=== PATIENT | male | born 1990 | race Caucasian/White ===

== ENCOUNTER 2017-08-24 14:05 | Emergency (ER) | payer OTHER ==
[2017-08-24 14:59] LABS: BILIRUBIN,URINE NEGATIVE (NEG); CLARITY,URINE TURBID; COLOR,URINE YELLOW; GLUCOSE,URINE NEGATIVE (NEG); NITRITE,URINE NEGATIVE (NEG); PROTEIN,URINE 30 mg/dL (NEG-TRACE); UROBILINOGEN,URINE 0.2 mg/dL (0.2 mg/dL)
[2017-08-24] MEDS: IV NORMAL SALINE 1000ML BAG 1,000 ML IV (15:04)
[2017-08-24] MEDS: ONDANSETRON PF 4 MG/2 ML VIAL. IV (15:04)
[2017-08-24 15:06] LABS: BASO % 0 % (0-3); EOS % 0 % (0-3); HEMATOCRIT 42.4 % (39.0-53.0); HEMOGLOBIN 14.3 g/dL (13.0-17.5); LYMPH # 0.3 x10^3/uL (1.0-4.8); LYMPH % 5 % (24-48); MEAN CORPUSCULAR HEMOGLOBIN 30 pg (25-35); MEAN CORPUSCULAR HGB CONC 34 g/dL (31-37); MEAN CORPUSCULAR VOLUME 89 fL (79-100); MONO # 0.9 x10^3/uL (0.0-1.1); MONO % 12 % (0-9); NEUT # 6.2 x10^3uL (1.8-7.7); NEUT % 84 % (31-73); PLATELET COUNT 167 x10^3/uL (140-400); RED BLOOD COUNT 4.75 x10^6/uL (4.30-5.70); RED CELL DISTRIBUTION WIDTH 13.5 % (11.5-14.5); WHITE BLOOD COUNT 7.4 x10^3/uL (4.0-11.0)
[2017-08-24 15:07] LABS: ADD MAN DIFF? YES; BARBITURATES NEG (NEG); BENZODIAZEPINES NEG (NEG); CANNABINOIDS POS (NEG); COCAINE NEG (NEG); METHADONE NEG (NEG); OPIATES NEG (NEG); PHENCYCLIDINE NEG (NEG)
[2017-08-24 15:09] LABS: AMPHETAMINE/METHAMPHETAMINE NEG (NEG); ANION GAP 9 (6-14); BLOOD UREA NITROGEN 9 mg/dL (8-26); BUN/CREATININE RATIO 10 (6-20); CALCIUM 9.3 mg/dL (8.5-10.1); CARBON DIOXIDE 25 mmol/L (21-32); CHLORIDE 105 mmol/L (98-107); CREATININE 0.9 mg/dL (0.7-1.3); ETHANOL, URINE NEG (NEG); GLUCOSE 99 mg/dL (70-99); POTASSIUM 3.4 mmol/L (3.5-5.1); SODIUM 139 mmol/L (136-145)
[2017-08-24 15:15] LABS: ALBUMIN 4.3 g/dL (3.4-5.0); ALBUMIN/GLOBULIN RATIO 1.3 (1.0-1.7); ALK PHOS 54 U/L (46-116); ALT (SGPT) 19 U/L (16-63); AST (SGOT) 16 U/L (15-37); LIPASE 133 U/L (73-393); TOTAL BILIRUBIN 0.4 mg/dL (0.2-1.0); TOTAL PROTEIN 7.5 g/dL (6.4-8.2)
[2017-08-24 15:16] LABS: INFLUENZA A PATIENT NEGATIVE (NEGATIVE)
[2017-08-24 15:17] LABS: INFLUENZA B PATIENT POSITIVE (NEGATIVE); OBC FLU VALID
[2017-08-24] MEDS: POTASSIUM CHLORIDE 20 MEQ TABLET.ER. PO (15:48)
[2017-08-24 16:07] LABS: BACTERIA,URINE FEW /HPF (0-FEW); RBC,URINE 0 /HPF (0-2); WBC,URINE 0 /HPF (0-4)
[2017-08-24] MEDS: IBUPROFEN 800 MG TABLET. PO (16:07)
[2017-08-24] MEDS: ACETAMINOPHEN 325 MG TABLET. PO (16:07)
[2017-08-24 16:08] LABS: AMORPHOUS SEDIMENT,UR PRESENT /HPF
[2017-08-24 17:30] LABS: % LYMPHS 5 % (24-48); % MONOS 10 % (0-10); % SEGS 85 % (35-66); OVALOCYTES OCC; PLT ESTIMATE ADEQUATE (ADEQUATE); SCHISTOCYTES OCC
== END 2017-08-24 17:01 | disposition home or self-care (01) ==
LOC: ER 14:05
DX: J10.1 Influenza due to other identified influenza virus with other respiratory manifestations (principal)
CPT/HCPCS: 36415; 80053; 80307; 81001; 83690; 85007; 85025; 87804; 87804-59; 96361; 96374; 99284-25; J2405; J7030

== ENCOUNTER 2019-05-24 01:12 | Emergency (ER) | payer OTHER ==
[~2019-05-24] VITALS: Ht 167.6 cm; Wt 54.4 kg
[~2019-05-24 01:12] MED LIST: OSEL75CA PO
[2019-05-24 01:35] VITALS: BP 122/75
[2019-05-24] MEDS ORDERED: ONDA4TAB7 PO (01:41)
--- NOTE | 2019-05-24 01:42 | PHYS DOC ---
Past Medical History Past Medical History: No Pertinent History Past Surgical History: No Surgical History Alcohol Use: None Drug Use: None Adult General Chief Complaint Chief Complaint: FLU SYMPTOM [facility] 29-year-old male presents to the emergency department with complaints of fever, body aches, body pain, vomiting, sweats 3 days. She has taken [id number] medications without significant relief. He did not receive the influenza shot this year. Patient states his mother and father both a been diagnosed with influenza as well as pneumonia he was concerned he may have pneumonia. Patient has a cough however nonproductive. Nothing makes his symptoms worse, nothing makes his symptoms better. All other ROS negative unless documented in HPI Review of Systems Review of Systems See Above Allergies Allergies Allergies Coded Allergies Type Severity Reaction Last Updated Verified No Known Drug Allergies 05/16/15 No Physical Exam Physical Exam See Above Constitutional: Well developed, well nourished, no acute distress, non-toxic appearance. [] HENT: Normocephalic, atraumatic, bilateral external ears normal, oropharynx moist, no oral exudates, nose normal. [] Neck: Normal range of motion, no tenderness, supple, no stridor. [] Cardiovascular:Heart rate regular rhythm, no murmur [] Lungs & Thorax: Bilateral breath sounds clear to auscultation [] Abdomen: Bowel sounds normal, soft, no tenderness, no masses, no pulsatile masses. [] Skin: Warm, dry, no erythema, no rash. [] Back: No tenderness, no CVA tenderness. [] Neurologic: Alert and oriented X 3, no focal deficits noted. [] Psychologic: Affect normal, judgement normal, mood normal. [] EKG EKG [] Radiology/Procedures Radiology/Procedures [] Course & Med Decision Making Course & Med Decision Making Pertinent Labs and Imaging studies reviewed. (See chart for details) []29-year-old male presents to the emergency department with complaints of fever, body aches, body pain, vomiting, sweats 3 days. She has taken [id number] medications without significant relief. He did not receive the influenza shot this year. Patient states his mother and father both a been diagnosed with influenza as well as pneumonia he was concerned he may have pneumonia. Patient has a cough however nonproductive. Nothing makes his symptoms worse, nothing makes his symptoms better. Discussed symptoms - influenza Discussed with patient, swab will not change the course of action at this time given > 48 hours of symptoms Tylenol/Motrin as needed Encourage fluids as able Return precautions provided Zofran as needed Steve Disclaimer Dragon Disclaimer This electronic medical record was generated, in whole or in part, using a voice recognition dictation system. Departure Departure Impression: Primary Impression: Influenza Disposition: HOME, SELF-CARE Condition: STABLE Referrals: UNKNOWN PCP NAME (PCP) Patient Instructions: Influenza Virus Vaccine injection (Fluarix) Additional Instructions: Recommend follow up with PCP 3 - 5 days Return to the ER with worsening symptoms, intractable pain, fever, altered mental status Tylenol/Motrin as needed for pain Take zofran as needed Encourage po intake as able, hydration is more important than appetite Scripts Ondansetron Hcl (ZOFRAN) 4 Mg Tablet 1 TAB PO PRN Q6-8HRS for nausea, #12 TAB Prov: ERIN CRAIG MD 05/24/19 ERIN CRAIG MD May 24, 2019 01:41
[2019-05-27] MEDS ORDERED: OSEL75CA PO (15:59)
[2019-05-27] MEDS ORDERED: PANT40TA77 PO (15:59)
== END 2019-05-24 01:44 | disposition home or self-care (01) ==
LOC: ER 01:12
DX: J11.1 Influenza due to unidentified influenza virus with other respiratory manifestations (principal)
CPT/HCPCS: 99283

== ENCOUNTER 2019-05-26 22:39 | Inpatient (IN) | payer OTHER ==
[~2019-05-26] VITALS: Ht 165.1 cm; Wt 58.7 kg
[~2019-05-26 22:39] MED LIST changes: +ONDA4TAB7 PO
[2019-05-26] MEDS ORDERED: ONDANSETRON PF 4 MG/2 ML VIAL. ONE (23:09)
[2019-05-26] MEDS ORDERED: ONDANSETRON PF 4 MG/2 ML VIAL. IV ONE (23:30)
[2019-05-26 23:44] LABS: BASO % 1 % (0-3); EOS % 0 % (0-3); HEMOGLOBIN 14.8 g/dL (13.0-17.5); LYMPH # 1.2 x10^3/uL (1.0-4.8); LYMPH % 22 % (24-48); MEAN CORPUSCULAR HEMOGLOBIN 30 pg (25-35); MEAN CORPUSCULAR HGB CONC 34 g/dL (31-37); MEAN CORPUSCULAR VOLUME 88 fL (79-100); MONO # 0.6 x10^3/uL (0.0-1.1); MONO % 12 % (0-9); NEUT # 3.6 x10^3/uL (1.8-7.7); NEUT % 65 % (31-73); PLATELET COUNT 164 x10^3/uL (140-400); RED BLOOD COUNT 4.88 x10^6/uL (4.30-5.70); RED CELL DISTRIBUTION WIDTH 13.3 % (11.5-14.5); WHITE BLOOD COUNT 5.5 x10^3/uL (4.0-11.0)
[2019-05-26] MEDS ORDERED: DICYCLOMINE HCL 10 MG CAPSULE PO ONE (23:45)
[2019-05-26] MEDS ORDERED: METOCLOPRAMIDE HCL 10 MG/2 ML VIAL. IVP ONE (23:45)
[2019-05-26] MEDS ORDERED: fentaNYL PF VIAL 100 MCG/2 ML VIAL IVP ONE (23:45)
[2019-05-26] MEDS ORDERED: FAMOTIDINE 20 MG/2 ML VIAL IVP ONE (23:45)
[2019-05-26 23:58] LABS: ALBUMIN 4.7 g/dL (3.4-5.0); ALBUMIN/GLOBULIN RATIO 1.6 (1.0-1.7); TOTAL BILIRUBIN 0.4 mg/dL (0.2-1.0); TOTAL PROTEIN 7.6 g/dL (6.4-8.2)
[2019-05-27 00:03] LABS: BILIRUBIN,URINE NEGATIVE (NEG); CLARITY,URINE CLEAR; COLOR,URINE YELLOW; NITRITE,URINE NEGATIVE (NEG); PROTEIN,URINE 30 mg/dL (NEG-TRACE)
[2019-05-27 00:08] LABS: BARBITURATES NEG (NEG); BENZODIAZEPINES NEG (NEG); CANNABINOIDS POS (NEG); COCAINE NEG (NEG); METHADONE NEG (NEG); OPIATES NEG (NEG); PHENCYCLIDINE NEG (NEG)
[2019-05-27 00:09] LABS: AMPHETAMINE/METHAMPHETAMINE NEG (NEG)
[2019-05-27 00:20] LABS: SQUAMOUS EPITHELIAL CELL,UR FEW /LPF
[2019-05-27 00:21] LABS: AMORPHOUS SEDIMENT,UR PRESENT /HPF; BACTERIA,URINE 0 /HPF (0-FEW); RBC,URINE 0 /HPF (0-2); WBC,URINE OCC /HPF (0-4)
[2019-05-27] MEDS ORDERED: POTASSIUM CHLORIDE 20 MEQ TABLET.ER. PO ONE (00:45)
[2019-05-27] MEDS ORDERED: IV NORMAL SALINE 1000ML BAG 1,000 ML IV ONE ×2 (00:45→01:30)
[2019-05-27] MEDS ORDERED: PROCHLORPERAZINE 10 MG/2 ML VIAL. IV ONE (00:45)
[2019-05-27] MEDS ORDERED: MORPHINE SULFATE 4 MG/ML VIAL. IV ONE (01:00)
--- NOTE | 2019-05-27 01:01 | PHYS DOC ---
Past Medical History Past Medical History: No Pertinent History (TENZIN CUENCA APRN) Past Surgical History: No Surgical History (TENZIN CUENCA APRN) Alcohol Use: Occasionally Drug Use: Marijuana (TENZIN CUENCA APRN) Attending Signature I have participated in the care of this patient and I have reviewed and agree with all pertinent clinical information above including history, exam, and recommendations. (ERIN CRAIG MD) Adult General Chief Complaint Chief Complaint: NAUSEA/VOMITING/DIARRHA HPI HPI Patient is a 29 year old male with no significant medical history who presents to the ED today complaining of nausea, vomiting, generalized abdominal pain rated as moderate described as cramping that began after having a [employer]. Patient denies any diarrhea. Denies any exacerbating or relieving factors to his symptoms. He reports he was seen in the ED 2 days ago and was diagnosed with influenza. (TENZIN CUENCA APRN) Review of Systems Review of Systems Constitutional: Denies fever or chills [] Eyes: Denies change in visual acuity, redness, or eye pain [] HENT: Denies nasal congestion or sore throat [] Respiratory: Denies cough or shortness of breath [] Cardiovascular: No additional information not addressed in HPI [] GI: Reports generalized abdominal pain with nausea and vomiting, denies diarrhea : Denies dysuria or hematuria [] Musculoskeletal: Denies back pain or joint pain [] Integument: Denies rash or skin lesions [] Neurologic: Denies headache, focal weakness or sensory changes [] All other systems were reviewed and found to be within normal limits, except as documented in this note. (TENZIN CUENCA APRN) Current Medications Current Medications Current Medications Medications (Trade) Dose Ordered Sig/Ena Start Time Stop Time Status Last Admin Dose Admin Dicyclomine HCl (Bentyl) 20 mg 1X ONCE 05/26/19 23:45 05/26/19 23:46 DC 05/26/19 23:48 20 MG Famotidine (Pepcid Vial) 20 mg 1X ONCE 05/26/19 23:45 05/26/19 23:46 DC 05/26/19 23:48 20 MG Fentanyl Citrate (Fentanyl 2ml Vial) 50 mcg 1X ONCE 05/26/19 23:45 05/26/19 23:46 DC 05/26/19 23:48 50 MCG Info (CONTRAST GIVEN -- Rx MONITORING) 1 each PRN DAILY PRN 05/27/19 01:15 05/27/19 16:44 DC Iohexol (Omnipaque 300 Mg/ml) 75 ml 1X ONCE 05/27/19 01:15 05/27/19 01:16 DC 05/27/19 01:12 75 ML Metoclopramide HCl (Reglan Vial) 10 mg 1X ONCE 05/26/19 23:45 05/26/19 23:46 DC 05/26/19 23:47 10 MG Morphine Sulfate (Morphine Sulfate) 4 mg 1X ONCE 05/27/19 01:00 05/27/19 01:01 DC Multi-Ingredient Mouthwash/Gargle (Gi Cocktail) 20 ml STK-MED ONCE 05/27/19 01:21 05/27/19 01:22 DC Ondansetron HCl (Zofran) 4 mg 1X ONCE 05/26/19 23:30 05/26/19 23:31 DC 05/26/19 23:30 4 MG Potassium Chloride (Klor-Con) 40 meq 1X ONCE 05/27/19 00:45 05/27/19 00:46 DC 05/27/19 00:45 40 MEQ Prochlorperazine Edisylate (Compazine) 10 mg 1X ONCE 05/27/19 00:45 05/27/19 00:46 DC 05/27/19 00:45 10 MG Sodium Chloride 1,000 ml @ 1,000 mls/hr 1X ONCE 05/27/19 00:45 05/27/19 01:44 DC 05/26/19 23:50 1,000 MLS/HR (ERIN CRAIG MD) Allergies Allergies Allergies Coded Allergies Type Severity Reaction Last Updated Verified No Known Drug Allergies 05/16/15 No (ERIN CRAIG MD) Physical Exam Physical Exam Constitutional: Well developed, well nourished, no acute distress, non-toxic appearance. [] HENT: Normocephalic, atraumatic, bilateral external ears normal, oropharynx moist, no oral exudates, nose normal. [] Eyes: PERRLA, EOMI, conjunctiva normal, no discharge. [] Neck: Normal range of motion, no tenderness, supple, no stridor. [] Cardiovascular:Heart rate regular rhythm, no murmur [] Lungs & Thorax: Bilateral breath sounds clear to auscultation [] Abdomen: Actively vomiting on arrival to the ED. Bowel sounds normal, soft, no tenderness, no masses, no pulsatile masses. [] Skin: Warm, dry, no erythema, no rash. [] Back: No tenderness, no CVA tenderness. [] Extremities: No tenderness, no cyanosis, no clubbing, ROM intact, no edema. [] Neurologic: Alert and oriented X 3, normal motor function, normal sensory function, no focal deficits noted. [] Psychologic: Appears anxious (MUTUNGA,TENZIN DEAN OF [place]) Current Patient Data Vital Signs Vital Signs Date Time Temp Pulse Resp B/P (MAP) Pulse Ox O2 Delivery O2 Flow Rate FiO2 05/27/19 01:14 71 16 124/90 (101) 100 Room Air 05/26/19 23:20 97.5 97.5 (ERIN CRAIG MD) Lab Values Laboratory Tests Test 05/26/19 23:10 05/26/19 23:50 White Blood Count 5.5 x10^3/uL (4.0-11.0) Red Blood Count 4.88 x10^6/uL (4.30-5.70) Hemoglobin 14.8 g/dL (13.0-17.5) Hematocrit 43.0 % (39.0-53.0) Mean Corpuscular Volume 88 fL (79-100) Mean Corpuscular Hemoglobin 30 pg (25-35) Mean Corpuscular Hemoglobin Concent 34 g/dL (31-37) Red Cell Distribution Width 13.3 % (11.5-14.5) Platelet Count 164 x10^3/uL (140-400) Neutrophils (%) (Auto) 65 % (31-73) Lymphocytes (%) (Auto) 22 % (24-48) L Monocytes (%) (Auto) 12 % (0-9) H Eosinophils (%) (Auto) 0 % (0-3) Basophils (%) (Auto) 1 % (0-3) Neutrophils # (Auto) 3.6 x10^3/uL (1.8-7.7) Lymphocytes # (Auto) 1.2 x10^3/uL (1.0-4.8) Monocytes # (Auto) 0.6 x10^3/uL (0.0-1.1) Eosinophils # (Auto) 0.0 x10^3/uL (0.0-0.7) Basophils # (Auto) 0.0 x10^3/uL (0.0-0.2) Sodium Level 141 mmol/L (136-145) Potassium Level 3.0 mmol/L (3.5-5.1) L Chloride Level 102 mmol/L (98-107) Carbon Dioxide Level 28 mmol/L (21-32) Anion Gap 11 (6-14) Blood Urea Nitrogen 18 mg/dL (8-26) Creatinine 1.0 mg/dL (0.7-1.3) Estimated GFR (Cockcroft-Gault) 89.0 BUN/Creatinine Ratio 18 (6-20) Glucose Level 117 mg/dL (70-99) H Calcium Level 9.0 mg/dL (8.5-10.1) Total Bilirubin 0.4 mg/dL (0.2-1.0) Aspartate Amino Transferase (AST) 28 U/L (15-37) Alanine Aminotransferase (ALT) 19 U/L (16-63) Alkaline Phosphatase 51 U/L (46-116) Total Protein 7.6 g/dL (6.4-8.2) Albumin 4.7 g/dL (3.4-5.0) Albumin/Globulin Ratio 1.6 (1.0-1.7) Lipase 227 U/L (73-393) Ethyl Alcohol Level < 10 mg/dL (0-10) Urine Collection Type Unknown Urine Color Yellow Urine Clarity Clear Urine pH 6.0 Urine Specific [place] >=1.030 Urine Protein 30 mg/dL (NEG-TRACE) Urine Glucose (UA) Negative mg/dL (NEG) Urine Ketones (Stick) >=80 mg/dL (NEG) Urine Blood Negative (NEG) Urine Nitrite Negative (NEG) Urine Bilirubin Negative (NEG) Urine Urobilinogen Dipstick 1.0 mg/dL (0.2 mg/dL) Urine Leukocyte Esterase Negative (NEG) Urine RBC 0 /HPF (0-2) Urine WBC Occ /HPF (0-4) Urine Squamous Epithelial Cells Few /LPF Urine Amorphous Sediment Present /HPF Urine Bacteria 0 /HPF (0-FEW) Urine Mucus Mod /LPF Urine Opiates Screen Neg (NEG) Urine Methadone Screen Neg (NEG) Urine Barbiturates Neg (NEG) Urine Phencyclidine Screen Neg (NEG) Urine Amphetamine/Methamphetamine Neg (NEG) Urine Benzodiazepines Screen Neg (NEG) Urine Cocaine Screen Neg (NEG) Urine Cannabinoids Screen Pos (NEG) Urine Ethyl Alcohol Neg (NEG) Laboratory Tests 05/26/19 23:10 Laboratory Tests 05/26/19 23:10 (ERIN CRAIG MD) EKG EKG [] (TENZIN CUENCA APRN) Radiology/Procedures Radiology/Procedures [] (TENZIN CUENCA APRN) Course & Med Decision Making Course & Med Decision Making Pertinent Labs and Imaging studies reviewed. (See chart for details) This is a 29-year-old male patient presenting to the ED today with generalized abdominal pain, nausea and vomiting that began this evening after having a [employer]. Patient arrived in the Ed vomiting. Off note he was see in the Ed two days ago and dx with Mario. CBC with a normal WBC, CMP with potassium of 3.0. Oral potassium was ordered. Patient was given 1 L of IV fluid, Zofran and famotidine,reglan and fentanyl. He is still vomiting. Compazine ordered. Admitted under Dr. Kim. GI consult placed. Ct of the abdomen and pelvis pending. (TENZIN CUENCA APRN) Dragon Disclaimer Dragon Disclaimer This electronic medical record was generated, in whole or in part, using a voice recognition dictation system. (TENZIN CUENCA APRN) Departure Departure Impression: Primary Impression: Food poisoning Additional Impression: Intractable nausea and vomiting Disposition: ADMITTED INPATIENT Condition: STABLE Referrals: UNKNOWN PCP NAME (PCP) Scripts Pantoprazole Sodium (PROTONIX ) 40 Mg Tablet. 40 MG PO DAILYAC for GERD for 30 Days, #30 TAB Prov: SHLOMO LALA MD 05/27/19 Oseltamivir Phosphate (TAMIFLU) 75 Mg Capsule 1 CAP PO BID for Influenza A for 5 Days, #10 CAP Prov: SHLOMO LALA MD 05/27/19 Problem Qualifiers TENZIN CUENCA APRN May 27, 2019 01:01 ERIN CRAIG MD May 27, 2019 18:21
[2019-05-27] MEDS ORDERED: CONTRAST GIVEN. MC PRN (01:15)
[2019-05-27] MEDS ORDERED: IOHEXOL 300 MG/ML 100ML VIAL. IV ONE (01:15)
[2019-05-27] MEDS ORDERED: LIDO:MAALOX 1:1 20 ML SINGLE DOSE. ONE (01:21)
[2019-05-27] MEDS ORDERED: LIDO:MAALOX 1:1 20 ML SINGLE DOSE. SWSW ONE (01:30)
[2019-05-27] MEDS ORDERED: ACETAMINOPHEN 325 MG TABLET. PO PRN (01:30)
[2019-05-27] MEDS ORDERED: ONDANSETRON PF 4 MG/2 ML VIAL. IV PRN (01:30)
[2019-05-27] MEDS ORDERED: PROCHLORPERAZINE 10 MG/2 ML VIAL. IV PRN (01:30)
--- NOTE | 2019-05-27 01:31 | RAD ---
CT abdomen and pelvis with contrast PQRS statement: CT scans at this facility use dose reduction including either automated exposure control, iterative reconstructions, and /or weight based radiation dosing via mA and kV modification when appropriate to reduce radiation dose to as low as reasonably achievable. HISTORY: Abdominal pain and vomiting. Contrast: 75 mL Omnipaque 300 intravenous contrast. Abdomen findings: Lung bases unremarkable. Mild disc height loss and shallow disc bulges lower lumbar spine. There is mild periportal hypodensity could be edema. There could also be mild edema surrounding the gallbladder. Pancreas, spleen, kidneys and adrenal glands are unremarkable. There is diffuse luminal collapse and wall thickening throughout the large bowel. Appendix not visualized likely obscured by surrounding collapsed small bowel loops. No abdominal fluid or adenopathy. Pelvis findings: Small volume of dependent pelvic fluid. Rectosigmoid wall thickening. There may be mild wall thickening of the distal small bowel at the pelvis. Bladder, prostate and bones are unremarkable. IMPRESSION: 1. Mild wall thickening of the distal small bowel and throughout the large bowel suspicious for enterocolitis. The appendix could not be identified likely obscured by surrounding bowel loops. 2. Mild edema surrounds the gallbladder as well as mild periportal liver edema surrounding the portal triads. This could be edema from hepatitis or due to volume overload or hypoalbuminemia. Electronically signed by: Mumtaz Brody MD (05/27/2019 1:28 AM) [id number]
[2019-05-27 01:50] VITALS: BP 107/76
--- NOTE | 2019-05-27 02:00 | NUR ---
Patient admitted from ER to room 420 per wheelchair. Patient stated he was seen in ER 2 days ago and was told that he flu B. Patient did not take Tamiflu and does not take flu shots. Patient came back to ER tonight for c/o nausea, vomiting and abdominal pain. Patient stated earlier yesterday, he ate a ham and cheese sub from [employer] and he became sick 1 hour later. Patient is NPO and he is asking for water and ice chips. Patient was given oral swabs and biotene. Consult with Dr. Ross later today. Will continue to monitor.
[2019-05-27] MEDS: MORPHINE SULFATE 4 MG/ML VIAL. IV PRN ×4 (02:39→10:38)
[2019-05-27 07:00] VITALS: BP 112/68
--- NOTE | 2019-05-27 08:34 | PDOC1 ---
History and Physical Date of Admission Date of Admission DATE: 05/27/19 TIME: 08:32 History of Present Illness History of Present Illness Mr Mckay is a 29-year-old male patient presenting to the ED today with generalized abdominal pain, nausea and vomiting that began this 05/26/19 in the evening after having a [employer] sandwich. Vomiting in ED not responsive to IV anti-emetics initially. Off note he was see in the Ed two days ago and dx with Infuenza A, not able to tolerate PO zofran or tamiflu. CBC with a normal WBC, CMP with potassium of 3.0. Oral potassium was ordered, not tolerated, vomited up Patient was given 1 L of IV fluid, Zofran and famotidine,reglan and fentanyl. He is still vomiting. Compazine ordered. Still with subjective fever and bodyaches currently. Abdominal pain is diffuse, 8/10. Seen in ER twice in the past (2015 and 2018) for similar symptoms. Maybe has indigestion after eating spicy foods, not concerning to him. No dysphagia, constipation, hematochezia, melena, or weight loss. No previous EGD or colonoscopy. No GB, liver, pancreas, or PUD history. Mom has Crohn's. Father of 5 - children ages 1 to 14. 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 Past Medical History Cardiovascular: No pertinent hx Pulmonary: No pertinent hx GI: No pertinent hx Heme/Onc: No pertinent hx Hepatobiliary: No pertinent hx Psych: No pertinent hx Rheumatologic: No pertinent hx Infectious disease: No pertinent hx ENT: No pertinent hx Renal/: No pertinent hx Endocrine: No pertinent hx Dermatology: No pertinent hx Past Surgical History Past Surgical History: No pertinent history Family History Family History: Other (Crohns) Social History Smoke: No ALCOHOL: none Drugs: Marijuana Current Problem List Problem List Problems Medical Problems: (1) Food poisoning Status: Acute (2) Intractable nausea and vomiting Status: Acute Current Medications Current Medications Current Medications Ondansetron HCl (Zofran) 4 mg STK-MED ONCE .ROUTE ; Start 05/26/19 at 23:09; Stop 05/26/19 at 23:09; Status DC Ondansetron HCl (Zofran) 4 mg 1X ONCE IV Last administered on 05/26/19at 23:30; Start 05/26/19 at 23:30; Stop 05/26/19 at 23:31; Status DC Dicyclomine HCl (Bentyl) 20 mg 1X ONCE PO Last administered on 05/26/19at 23:48; Start 05/26/19 at 23:45; Stop 05/26/19 at 23:46; Status DC Fentanyl Citrate (Fentanyl 2ml Vial) 50 mcg 1X ONCE IVP Last administered on 05/26/19at 23:48; Start 05/26/19 at 23:45; Stop 05/26/19 at 23:46; Status DC Famotidine (Pepcid Vial) 20 mg 1X ONCE IVP Last administered on 05/26/19at 23:48; Start 05/26/19 at 23:45; Stop 05/26/19 at 23:46; Status DC Metoclopramide HCl (Reglan Vial) 10 mg 1X ONCE IVP Last administered on 05/26/19at 23:47; Start 05/26/19 at 23:45; Stop 05/26/19 at 23:46; Status DC Potassium Chloride (Klor-Con) 40 meq 1X ONCE PO Last administered on 05/27/19at 00:45; Start 05/27/19 at 00:45; Stop 05/27/19 at 00:46; Status DC Prochlorperazine Edisylate (Compazine) 10 mg 1X ONCE IV Last administered on 05/27/19at 00:45; Start 05/27/19 at 00:45; Stop 05/27/19 at 00:46; Status DC Sodium Chloride 1,000 ml @ 1,000 mls/hr 1X ONCE IV Last administered on at 23:50; Start 05/27/19 at 00:45; Stop 05/27/19 at 01:44; Status DC Morphine Sulfate (Morphine Sulfate) 4 mg 1X ONCE IV ; Start 05/27/19 at 01:00; Stop 05/27/19 at 01:01; Status DC Iohexol (Omnipaque 300 Mg/ml) 75 ml 1X ONCE IV Last administered on 05/27/19at 01:12; Start 05/27/19 at 01:15; Stop 05/27/19 at 01:16; Status DC Info (CONTRAST GIVEN -- Rx MONITORING) 1 each PRN DAILY PRN MC SEE COMMENTS; Start 05/27/19 at 01:15; Stop 05/29/19 at 01:14 Multi-Ingredient Mouthwash/Gargle (Gi Cocktail) 20 ml 1X ONCE SWSW Last administered on 05/27/19at 01:24; Start 05/27/19 at 01:30; Stop 05/27/19 at 01:31; Status DC Multi-Ingredient Mouthwash/Gargle (Gi Cocktail) 20 ml STK-MED ONCE .ROUTE ; Start 05/27/19 at 01:21; Stop 05/27/19 at 01:22; Status DC Ondansetron HCl (Zofran) 4 mg PRN Q8HRS PRN IV NAUSEA/VOMITING; Start 05/27/19 at 01:30; Stop 05/28/19 at 01:29 Morphine Sulfate (Morphine Sulfate) 4 mg PRN Q2HR PRN IV PAIN Last administered on 05/27/19at 08:27; Start 05/27/19 at 01:30; Stop 05/28/19 at 01:29 Acetaminophen (Tylenol) 650 mg PRN Q4HRS PRN PO FEVER; Start 05/27/19 at 01:30; Stop 05/28/19 at 01:29 Sodium Chloride 1,000 ml @ 125 mls/hr 1X ONCE IV Last administered on 05/27/19at 02:40; Start 05/27/19 at 01:30; Stop 05/27/19 at 09:29 Famotidine (Pepcid Vial) 20 mg DAILY IVP Last administered on 05/27/19at 08:26; Start 05/27/19 at 09:00 Prochlorperazine Edisylate (Compazine) 10 mg PRN Q8HRS PRN IV VOMITING; Start 05/27/19 at 01:30 Active Scripts Active Zofran (Ondansetron Hcl) 4 Mg Tablet 1 Tab PO PRN Q6-8HRS Tamiflu (Oseltamivir Phosphate) 75 Mg Capsule 1 Cap PO BID 5 Days Allergies Allergies: Coded Allergies: No Known Drug Allergies (Unverified , 05/16/15) ROS General: YES: Chills, Fatigue, Malaise, Appetite; No: Night Sweats, Other PSYCHOLOGICAL ROS: YES: Anxiety; No: Behavioral Disorder, Concentration difficultie, Decreased libido, Depression, Disorientation, Hallucinations, Hostility, Irritablity, Memory difficulties, Mood Swings, Obsessive thoughts, Physical abuse, Sexual abuse, Sleep disturbances, Suicidal ideation, Other Eyes: No Blurry vision, No Decreased vision, No Double vision, No Dry eyes, No Excessive tearing, No Eye Pain, No Itchy Eyes, No Loss of vision, No Photophobia, No Scotomata, No Uses contacts, No Uses glasses, No Other HEENT: No: Heacaches, Visual Changes, Hearing change, Nasal congestion, Nasal discharge, Oral lesions, Sinus pain, Sore Throat, Epistaxis, Sneezing, Snoring, Tinnitus, Vertigo, Vocal changes, Other ALLERGY AND IMMUNOLOGY: No: Hives, Insect Bite Sensitivity, Itchy/Watery Eyes, Nasal Congestion, Post Nasal Drip, Seasonal Allergies, Other Hematological and Lymphatic: No: Bleeding Problems, Blood Clots, Blood Transfusions, Brusing, Night Sweats, Pallor, Swollen Lymph Nodes, Other ENDOCRINE: No: Breast Changes, Galactorrhea, Hair Pattern Changes, Hot Flashes, Malaise/lethargy, Mood Swings, Palpitations, Polydipsia/polyuria, Skin Changes, Temperature Intolerance, Unexpected Weight Changes, Other Breast: No New/Changing Breast Lumps, No Nipple changes, No Nipple discharge, No Other Respiratory: YES: Cough; No: Hemoptysis, Orthopnea, Pleuritic Pain, Shortness of breath, SOB with excertion, Sputum Changes, Stridor, Tachypnea, Wheezing, Other Cardiovascular: No Chest Pain, No Palpitations, No Orthopnea, No Paroxysmal Noc. Dyspnea, No Edema, No Lt Headedness, No Other Gastrointestinal: Yes Nausea, Yes Vomiting, Yes Abdominal Pain; No Diarrhea, No Constipation, No Melena, No Hematochezia, No Other Genitourinary: No Dysuria, No Frequency, No Incontinence, No Hematuria, No Retention, No Discharge, No Urgency, No Pain, No Flank Pain, No Other, No , No , No , No , No , No , No Musculoskeletal: No Gait Disturbance, No Joint Pain, No Joint Stiffness, No Joint Swelling, No Muscle Pain, No Muscular Weakness, No Pain In:, No Swelling In:, No Other Neurological: No Behavorial Changes, No Bowel/Bladder ControlChng, No Confusion, No Dizziness, No Gait Disturbance, No Headaches, No Impaired Coord/balance, No Memory Loss, No Numbness/Tingling, No Seizures, No Speech Problems, No Tremors, No Visual Changes, No Weakness, No Other Skin: No Dry Skin, No Eczema, No Hair Changes, No Lumps, No Mole Changes, No Mottling, No Nail Changes, No Pruritus, No Rash, No Skin Lesion Changes, No Other, No Acne Physical Exam General: Alert, Oriented X3, Cooperative, moderate distress HEENT: Atraumatic, PERRLA, EOMI, Mucous membr. moist/pink Lungs: Clear to auscultation, Normal air movement Heart: S1S2, RRR, no thrills, no rubs, no gallops, no murmurs Abdomen: Normal bowel sounds, Soft, No hepatosplenomegaly, No masses, Other (Diffusely tender) Rectal Exam: other (Normal tone, no blood) Extremities: No clubbing, No cyanosis, No edema, Normal pulses, No tenderness/swelling Skin: No rashes, No breakdown, No significant lesion Neuro: Normal gait, Normal speech, Strength at 5/5 X4 ext, Normal tone, Sensation intact, Cranial nerves 3-12 NL, Reflexes 2+ Psych/Mental Status: Mental status NL, Mood NL Vitals Vitals Vital Signs Date Time Temp Pulse Resp B/P (MAP) Pulse Ox O2 Delivery O2 Flow Rate FiO2 05/27/19 08:27 16 Room Air 05/27/19 01:50 97.4 50 107/76 (86) 99 97.4 Labs Labs Laboratory Tests Test 05/26/19 23:10 05/26/19 23:50 White Blood Count 5.5 x10^3/uL (4.0-11.0) Red Blood Count 4.88 x10^6/uL (4.30-5.70) Hemoglobin 14.8 g/dL (13.0-17.5) Hematocrit 43.0 % (39.0-53.0) Mean Corpuscular Volume 88 fL (79-100) Mean Corpuscular Hemoglobin 30 pg (25-35) Mean Corpuscular Hemoglobin Concent 34 g/dL (31-37) Red Cell Distribution Width 13.3 % (11.5-14.5) Platelet Count 164 x10^3/uL (140-400) Neutrophils (%) (Auto) 65 % (31-73) Lymphocytes (%) (Auto) 22 % (24-48) Monocytes (%) (Auto) 12 % (0-9) Eosinophils (%) (Auto) 0 % (0-3) Basophils (%) (Auto) 1 % (0-3) Neutrophils # (Auto) 3.6 x10^3/uL (1.8-7.7) Lymphocytes # (Auto) 1.2 x10^3/uL (1.0-4.8) Monocytes # (Auto) 0.6 x10^3/uL (0.0-1.1) Eosinophils # (Auto) 0.0 x10^3/uL (0.0-0.7) Basophils # (Auto) 0.0 x10^3/uL (0.0-0.2) Sodium Level 141 mmol/L (136-145) Potassium Level 3.0 mmol/L (3.5-5.1) Chloride Level 102 mmol/L (98-107) Carbon Dioxide Level 28 mmol/L (21-32) Anion Gap 11 (6-14) Blood Urea Nitrogen 18 mg/dL (8-26) Creatinine 1.0 mg/dL (0.7-1.3) Estimated GFR (Cockcroft-Gault) 89.0 BUN/Creatinine Ratio 18 (6-20) Glucose Level 117 mg/dL (70-99) Calcium Level 9.0 mg/dL (8.5-10.1) Total Bilirubin 0.4 mg/dL (0.2-1.0) Aspartate Amino Transf (AST/SGOT) 28 U/L (15-37) Alanine Aminotransferase (ALT/SGPT) 19 U/L (16-63) Alkaline Phosphatase 51 U/L (46-116) Total Protein 7.6 g/dL (6.4-8.2) Albumin 4.7 g/dL (3.4-5.0) Albumin/Globulin Ratio 1.6 (1.0-1.7) Lipase 227 U/L (73-393) Ethyl Alcohol Level < 10 mg/dL (0-10) Urine Collection Type Unknown Urine Color Yellow Urine Clarity Clear Urine pH 6.0 Urine Specific [place] >=1.030 Urine Protein 30 mg/dL (NEG-TRACE) Urine Glucose (UA) Negative mg/dL (NEG) Urine Ketones (Stick) >=80 mg/dL (NEG) Urine Blood Negative (NEG) Urine Nitrite Negative (NEG) Urine Bilirubin Negative (NEG) Urine Urobilinogen Dipstick 1.0 mg/dL (0.2 mg/dL) Urine Leukocyte Esterase Negative (NEG) Urine RBC 0 /HPF (0-2) Urine WBC Occ /HPF (0-4) Urine Squamous Epithelial Cells Few /LPF Urine Amorphous Sediment Present /HPF Urine Bacteria 0 /HPF (0-FEW) Urine Mucus Mod /LPF Urine Opiates Screen Neg (NEG) Urine Methadone Screen Neg (NEG) Urine Barbiturates Neg (NEG) Urine Phencyclidine Screen Neg (NEG) Urine Amphetamine/Methamphetamine Neg (NEG) Urine Benzodiazepines Screen Neg (NEG) Urine Cocaine Screen Neg (NEG) Urine Cannabinoids Screen Pos (NEG) Urine Ethyl Alcohol Neg (NEG) Laboratory Tests Test 05/26/19 23:10 05/26/19 23:50 White Blood Count 5.5 x10^3/uL (4.0-11.0) Red Blood Count 4.88 x10^6/uL (4.30-5.70) Hemoglobin 14.8 g/dL (13.0-17.5) Hematocrit 43.0 % (39.0-53.0) Mean Corpuscular Volume 88 fL (79-100) Mean Corpuscular Hemoglobin 30 pg (25-35) Mean Corpuscular Hemoglobin Concent 34 g/dL (31-37) Red Cell Distribution Width 13.3 % (11.5-14.5) Platelet Count 164 x10^3/uL (140-400) Neutrophils (%) (Auto) 65 % (31-73) Lymphocytes (%) (Auto) 22 % (24-48) Monocytes (%) (Auto) 12 % (0-9) Eosinophils (%) (Auto) 0 % (0-3) Basophils (%) (Auto) 1 % (0-3) Neutrophils # (Auto) 3.6 x10^3/uL (1.8-7.7) Lymphocytes # (Auto) 1.2 x10^3/uL (1.0-4.8) Monocytes # (Auto) 0.6 x10^3/uL (0.0-1.1) Eosinophils # (Auto) 0.0 x10^3/uL (0.0-0.7) Basophils # (Auto) 0.0 x10^3/uL (0.0-0.2) Sodium Level 141 mmol/L (136-145) Potassium Level 3.0 mmol/L (3.5-5.1) Chloride Level 102 mmol/L (98-107) Carbon Dioxide Level 28 mmol/L (21-32) Anion Gap 11 (6-14) Blood Urea Nitrogen 18 mg/dL (8-26) Creatinine 1.0 mg/dL (0.7-1.3) Estimated GFR (Cockcroft-Gault) 89.0 BUN/Creatinine Ratio 18 (6-20) Glucose Level 117 mg/dL (70-99) Calcium Level 9.0 mg/dL (8.5-10.1) Total Bilirubin 0.4 mg/dL (0.2-1.0) Aspartate Amino Transf (AST/SGOT) 28 U/L (15-37) Alanine Aminotransferase (ALT/SGPT) 19 U/L (16-63) Alkaline Phosphatase 51 U/L (46-116) Total Protein 7.6 g/dL (6.4-8.2) Albumin 4.7 g/dL (3.4-5.0) Albumin/Globulin Ratio 1.6 (1.0-1.7) Lipase 227 U/L (73-393) Ethyl Alcohol Level < 10 mg/dL (0-10) Urine Collection Type Unknown Urine Color Yellow Urine Clarity Clear Urine pH 6.0 Urine Specific [place] >=1.030 Urine Protein 30 mg/dL (NEG-TRACE) Urine Glucose (UA) Negative mg/dL (NEG) Urine Ketones (Stick) >=80 mg/dL (NEG) Urine Blood Negative (NEG) Urine Nitrite Negative (NEG) Urine Bilirubin Negative (NEG) Urine Urobilinogen Dipstick 1.0 mg/dL (0.2 mg/dL) Urine Leukocyte Esterase Negative (NEG) Urine RBC 0 /HPF (0-2) Urine WBC Occ /HPF (0-4) Urine Squamous Epithelial Cells Few /LPF Urine Amorphous Sediment Present /HPF Urine Bacteria 0 /HPF (0-FEW) Urine Mucus Mod /LPF Urine Opiates Screen Neg (NEG) Urine Methadone Screen Neg (NEG) Urine Barbiturates Neg (NEG) Urine Phencyclidine Screen Neg (NEG) Urine Amphetamine/Methamphetamine Neg (NEG) Urine Benzodiazepines Screen Neg (NEG) Urine Cocaine Screen Neg (NEG) Urine Cannabinoids Screen Pos (NEG) Urine Ethyl Alcohol Neg (NEG) Images Images CT abdomen/pelvis - Lung bases unremarkable. Mild disc height loss and shallow disc bulges lower lumbar spine. There is mild periportal hypodensity could be edema. There could also be mild edema surrounding the gallbladder. Pancreas, spleen, kidneys and adrenal glands are unremarkable. There is diffuse luminal co llapse and wall thickening throughout the large bowel. Appendix not visualized likely obscured by surrounding collapsed small bowel loops. No abdominal fluid or adenopathy. Pelvis findings: Small volume of dependent pelvic fluid. Rectosigmoid wall thickening. There may be mild wall thickening of the distal small bowel at the pelvis. Bladder, prostate and bones are unremarkable. 1. Mild wall thickening of the distal small bowel and throughout the large bowel suspicious for enterocolitis. The appendix could not be identified likely obscured by surrounding bowel loops. 2. Mild edema surrounds the gallbladder as well as mild periportal liver edema surrounding the portal triads. This could be edema from hepatitis or due to volume overload or hypoalbuminemia. VTE Prophylaxis Ordered VTE Prophylaxis Devices: No VTE Pharmacological Prophylaxi: No Assessment/Plan Assessment/Plan A/P: Intractable nausea and Vomiting - IV anti-emetics, with associated abd pain, loose stools - influenza earlier this week, GI symptoms began after eating at [employer] Hypokalemia - level 3, risk for arrhythmia as he cannot take PO, replace IV, check mag Enterocolitis. - Abnormal CT - diffuse luminal collapse and wall thickening throughout the large bowel, collapsed small bowel loops w/ possible mild wall thickening of distal small bowel, rectosigmoid wall thickening, mild periportal hypodensity/possible edema, possible mild edema FH Crohn's - needs GI consultation given that he has edema surrounding his livre as well Influenza A - will treat +cannabinoids - counseled on cessation FEN - NPO PPX - SCDs FULL CODE Dispo - inpatient for intractable nausea and vomiting with abdominal pain on IV medications SHLOMO LALA MD May 27, 2019 08:34
[2019-05-27] MEDS ORDERED: OSELTAMIVIR 75 MG CAPSULE PO SCH (09:00)
[2019-05-27] MEDS ORDERED: FAMOTIDINE 20 MG/2 ML VIAL IVP SCH (09:00)
--- NOTE | 2019-05-27 09:43 | NUR ---
IP: Pt states seen in an ER prior to adm with dx of Influenza. Pt to be in droplet precautions for 7 days and 24 hours without a fever, whichever is longest.
--- NOTE | 2019-05-27 10:26 | PDOC2 ---
GI CONSULT Reason For Consult: food poisoning HPI: HPI: 29 y/o male who I saw earlier this morning. Family members diagnosed w/ influenza A, to ER earlier this week w/ fever and bodyaches and same diagnosis suspected. Canon better yesterday (was taking Zofran, Motrin, Tylenol, and Pepto at home) and ate a 6 inch ham sandwich from [employer]. Soon after, had upper/mid abdomen pain ("really bad"), vomiting, and loose stools. Describes vomiting " the lining" - bile, maybe some red. No vomiting or stools since last night and pain has improved (from 10 to 5) but still hesitant to try drinking/eating. Typically no GI issues but was seen in ER twice in the past (2016 and 2018) for similar symptoms. Maybe has indigestion after eating spicy foods, not concerning to him. No dysphagia, constipation, hematochezia, melena, or weight loss. No previous EGD or colonoscopy. No GB, liver, pancreas, or PUD history. Mom has Crohn's. Father of 5 - children ages 1 to 14. 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 PMH: PMH: denies FH: Family History: Other (mother - Crohn's) Social History: Smoke: <1 pack per day ALCOHOL: rare Drugs: Marijuana ROS: GEN: +fever HEENT: Denies blurred vision, sore throat CV: Denies chest pain RESP: Denies shortness of air, cough GI: Per HPI : Denies hematuria, dysuria ENDO: Denies weight changes NEURO: Denies confusion, dizziness MSK: +bodyaches SKIN: Denies jaundice, pruritus Vitals: Vitals: Vital Signs Date Time Temp Pulse Resp B/P (MAP) Pulse Ox O2 Delivery O2 Flow Rate FiO2 05/27/19 08:58 16 Room Air 05/27/19 07:00 97.9 70 112/68 (83) 98 97.9 Labs: Labs: Laboratory Tests Test 05/26/19 23:10 05/26/19 23:50 White Blood Count 5.5 x10^3/uL (4.0-11.0) Red Blood Count 4.88 x10^6/uL (4.30-5.70) Hemoglobin 14.8 g/dL (13.0-17.5) Hematocrit 43.0 % (39.0-53.0) Mean Corpuscular Volume 88 fL (79-100) Mean Corpuscular Hemoglobin 30 pg (25-35) Mean Corpuscular Hemoglobin Concent 34 g/dL (31-37) Red Cell Distribution Width 13.3 % (11.5-14.5) Platelet Count 164 x10^3/uL (140-400) Neutrophils (%) (Auto) 65 % (31-73) Lymphocytes (%) (Auto) 22 % (24-48) Monocytes (%) (Auto) 12 % (0-9) Eosinophils (%) (Auto) 0 % (0-3) Basophils (%) (Auto) 1 % (0-3) Neutrophils # (Auto) 3.6 x10^3/uL (1.8-7.7) Lymphocytes # (Auto) 1.2 x10^3/uL (1.0-4.8) Monocytes # (Auto) 0.6 x10^3/uL (0.0-1.1) Eosinophils # (Auto) 0.0 x10^3/uL (0.0-0.7) Basophils # (Auto) 0.0 x10^3/uL (0.0-0.2) Sodium Level 141 mmol/L (136-145) Potassium Level 3.0 mmol/L (3.5-5.1) Chloride Level 102 mmol/L (98-107) Carbon Dioxide Level 28 mmol/L (21-32) Anion Gap 11 (6-14) Blood Urea Nitrogen 18 mg/dL (8-26) Creatinine 1.0 mg/dL (0.7-1.3) Estimated GFR (Cockcroft-Gault) 89.0 BUN/Creatinine Ratio 18 (6-20) Glucose Level 117 mg/dL (70-99) Calcium Level 9.0 mg/dL (8.5-10.1) Total Bilirubin 0.4 mg/dL (0.2-1.0) Aspartate Amino Transf (AST/SGOT) 28 U/L (15-37) Alanine Aminotransferase (ALT/SGPT) 19 U/L (16-63) Alkaline Phosphatase 51 U/L (46-116) Total Protein 7.6 g/dL (6.4-8.2) Albumin 4.7 g/dL (3.4-5.0) Albumin/Globulin Ratio 1.6 (1.0-1.7) Lipase 227 U/L (73-393) Ethyl Alcohol Level < 10 mg/dL (0-10) Urine Collection Type Unknown Urine Color Yellow Urine Clarity Clear Urine pH 6.0 Urine Specific [place] >=1.030 Urine Protein 30 mg/dL (NEG-TRACE) Urine Glucose (UA) Negative mg/dL (NEG) Urine Ketones (Stick) >=80 mg/dL (NEG) Urine Blood Negative (NEG) Urine Nitrite Negative (NEG) Urine Bilirubin Negative (NEG) Urine Urobilinogen Dipstick 1.0 mg/dL (0.2 mg/dL) Urine Leukocyte Esterase Negative (NEG) Urine RBC 0 /HPF (0-2) Urine WBC Occ /HPF (0-4) Urine Squamous Epithelial Cells Few /LPF Urine Amorphous Sediment Present /HPF Urine Bacteria 0 /HPF (0-FEW) Urine Mucus Mod /LPF Urine Opiates Screen Neg (NEG) Urine Methadone Screen Neg (NEG) Urine Barbiturates Neg (NEG) Urine Phencyclidine Screen Neg (NEG) Urine Amphetamine/Methamphetamine Neg (NEG) Urine Benzodiazepines Screen Neg (NEG) Urine Cocaine Screen Neg (NEG) Urine Cannabinoids Screen Pos (NEG) Urine Ethyl Alcohol Neg (NEG) Allergies: Coded Allergies: No Known Drug Allergies (Unverified , 05/16/15) Medications: Current Medications Medications (Trade) Dose Ordered Sig/Ena Route PRN Reason Start Time Stop Time Status Last Admin Dose Admin Ondansetron HCl (Zofran) 4 mg 1X ONCE IV 05/26/19 23:30 05/26/19 23:31 DC 05/26/19 23:30 Dicyclomine HCl (Bentyl) 20 mg 1X ONCE PO 05/26/19 23:45 05/26/19 23:46 DC 05/26/19 23:48 Fentanyl Citrate (Fentanyl 2ml Vial) 50 mcg 1X ONCE IVP 05/26/19 23:45 05/26/19 23:46 DC 05/26/19 23:48 Famotidine (Pepcid Vial) 20 mg 1X ONCE IVP 05/26/19 23:45 05/26/19 23:46 DC 05/26/19 23:48 Metoclopramide HCl (Reglan Vial) 10 mg 1X ONCE IVP 05/26/19 23:45 05/26/19 23:46 DC 05/26/19 23:47 Potassium Chloride (Klor-Con) 40 meq 1X ONCE PO 05/27/19 00:45 05/27/19 00:46 DC 05/27/19 00:45 Prochlorperazine Edisylate (Compazine) 10 mg 1X ONCE IV 05/27/19 00:45 05/27/19 00:46 DC 05/27/19 00:45 Sodium Chloride 1,000 ml @ 1,000 mls/hr 1X ONCE IV 05/27/19 00:45 05/27/19 01:44 DC 05/26/19 23:50 Iohexol (Omnipaque 300 Mg/ml) 75 ml 1X ONCE IV 05/27/19 01:15 05/27/19 01:16 DC 05/27/19 01:12 Multi-Ingredient Mouthwash/Gargle (Gi Cocktail) 20 ml 1X ONCE SWSW 05/27/19 01:30 05/27/19 01:31 DC 05/27/19 01:24 Morphine Sulfate (Morphine Sulfate) 4 mg PRN Q2HR PRN IV PAIN 05/27/19 01:30 05/28/19 01:29 05/27/19 08:27 Sodium Chloride 1,000 ml @ 125 mls/hr 1X ONCE IV 05/27/19 01:30 05/27/19 09:29 DC 05/27/19 02:40 Famotidine (Pepcid Vial) 20 mg DAILY IVP 05/27/19 09:00 05/27/19 08:26 Oseltamivir Phosphate (Tamiflu) 75 mg BID PO 05/27/19 09:00 06/01/19 08:59 05/27/19 08:51 Imaging: Imaging: CT A/P Abdomen findings: Lung bases unremarkable. Mild disc height loss and shallow disc bulges lower lumbar spine. There is mild periportal hypodensity could be edema. There could also be mild edema surrounding the gallbladder. Pancreas, spleen, kidneys and adrenal glands are unremarkable. There is diffuse luminal collapse and wall thickening throughout the large bowel. Appendix not visualized likely obscured by surrounding collapsed small bowel loops. No abdominal fluid or adenopathy. Pelvis findings: Small volume of dependent pelvic fluid. Rectosigmoid wall thickening. There may be mild wall thickening of the distal small bowel at the pelvis. Bladder, prostate and bones are unremarkable. IMPRESSION: 1. Mild wall thickening of the distal small bowel and throughout the large bowel suspicious for enterocolitis. The appendix could not be identified likely obscured by surrounding bowel loops. 2. Mild edema surrounds the gallbladder as well as mild periportal liver edema surrounding the portal triads. This could be edema from hepatitis or due to volume overload or hypoalbuminemia. PE: GEN: NAD HEENT: Atraumatic, PERRL LUNGS: CTAB HEART: RRR ABD: NABS, S/ND, periumbilical tenderness - mostly to left/upper EXTREMITY: No edema SKIN: No rashes, no jaundice NEURO/PSYCH: A & O 3 A/P: A/P: Vomiting, abd pain, loose stools - ?influenza earlier this week, GI symptoms began after eating at [employer] Hypokalemia Abnormal CT - diffuse luminal collapse and wall thickening throughout the large bowel, collapsed small bowel loops w/ possible mild wall thickening of distal small bowel, rectosigmoid wall thickening, mild periportal hypodensity/possible edema, possible mild edema surrounding GB FH Crohn's +cannabinoids -- His preference is to keep to ice chips and sips of water for now. Consider trial of clear liquids later. Agree w/ acid-launch engineer - can change to PO as able. If diarrhea recurs, check stool studies. GI symptoms could be infectious, though some similar symptoms in the past and FH Crohn's. If unresolved/recurrent, consider follow-up in clinic for SBFT and colonoscopy. WING EPSTEIN May 27, 2019 10:26
[2019-05-27 11:00] VITALS: BP 108/66
[2019-05-27 14:22] LABS: CALCIUM 8.5 mg/dL (8.5-10.1); CREATININE 0.7 mg/dL (0.7-1.3); GFR 134.3; MAGNESIUM 1.9 mg/dL (1.8-2.4); POTASSIUM 3.5 mmol/L (3.5-5.1)
[2019-05-27 15:00] VITALS: BP 105/71
[2019-05-27] MEDS ORDERED: PANT40TA77 PO (15:59)
[2019-05-27] MEDS ORDERED: OSEL75CA PO (15:59)
--- NOTE | 2019-05-27 16:27 | NUR ---
Discharge instructions and belongings reviewed with patient, verbalized understanding. Patient was escorted out via ambulation by Becky VILLAGOMEZ
--- NOTE | 2019-05-29 15:32 | PDOC3 ---
Discharge Summary Visit Information Date of Admission: May 27, 2019 Date of Discharge: May 27, 2019 Admitting Diagnosis: Intractable nausea and vomiting Final Diagnosis Problems Medical Problems: (1) Food poisoning Status: Acute (2) Intractable nausea and vomiting Status: Acute Brief Hospital Course Allergies Allergies Coded Allergies Type Severity Reaction Last Updated Verified No Known Drug Allergies 05/16/15 No Brief Hospital Course Mr Mckay is a 29-year-old male patient presenting to the ED today with generalized abdominal pain, nausea and vomiting that began this 05/26/19 in the evening after having a [employer] sandwich. Vomiting in ED not responsive to IV anti-emetics initially. Off note he was see in the Ed two days ago and dx with Infuenza A, not able to tolerate PO zofran or tamiflu. CBC with a normal WBC, CMP with potassium of 3.0. Oral potassium was ordered, not tolerated, vomited up Patient was given 1 L of IV fluid, Zofran and famotidine,reglan and fentanyl. He is still vomiting. Compazine ordered. Subjective fever and bodyaches. Abdominal pain was diffuse, 8/10. Seen in ER twice in the past (2015 and 2017) for similar symptoms. Maybe has indigestion after eating spicy foods, not concerning to him. No dysphagia, constipation, hematochezia, melena, or weight loss. No previous EGD or colonoscopy. No GB, liver, pancreas, or PUD history. Mom has Crohn's. Father of 5 - children ages 1 to 14. 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 Seen by GI - able to tolerate PO well. As he improved drastically over 24 hours, this was likely toxigenic food poisoning having eating cold cuts and lettuce he was high risk. He does need outpatient f/u with GI given his family h/o of Crohn disease, given referral and anti-emetics. CT abdomen/pelvis - Lung bases unremarkable. Mild disc height loss and shallow disc bulges lower lumbar spine. There is mild periportal hypodensity could be edema. There could also be mild edema surrounding the gallbladder. Pancreas, spleen, kidneys and adrenal glands are unremarkable. There is diffuse luminal collapse and wall thickening throughout the large bowel. Appendix not visualized likely obscured by surrounding collapsed small bowel loops. No abdominal fluid o r adenopathy. Pelvis findings: Small volume of dependent pelvic fluid. Rectosigmoid wall thickening. There may be mild wall thickening of the distal small bowel at the pelvis. Bladder, prostate and bones are unremarkable. 1. Mild wall thickening of the distal small bowel and throughout the large bowel suspicious for enterocolitis. The appendix could not be identified likely obscured by surrounding bowel loops. 2. Mild edema surrounds the gallbladder as well as mild periportal liver edema surrounding the portal triads. This could be edema from hepatitis or due to volume overload or hypoalbuminemia. Problem list Intractable nausea and Vomiting - IV anti-emetics, with associated abd pain, loose stools - influenza earlier this week, GI symptoms began after eating at [employer] Hypokalemia - level 3, risk for arrhythmia as he cannot take PO, replace IV, check mag Enterocolitis. - Abnormal CT - diffuse luminal collapse and wall thickening throughout the large bowel, collapsed small bowel loops w/ possible mild wall th ickening of distal small bowel, rectosigmoid wall thickening, mild periportal hypodensity/possible edema, possible mild edema FH Crohn's - needs GI consultation given that he has edema surrounding his livre as well Influenza A - will treat +cannabinoids - counseled on cessation Greater than 135 minutes spent on same day admit and d/c Discharge Information Condition at Discharge: Improved Follow Up: Weeks (1) Disposition/Orders: D/C to Home Scheduled Ondansetron Hcl (Zofran) 4 Mg Tablet, 1 TAB PO PRN Q6-8HRS for nausea, #12 Prescribed by: ERIN CRAIG MD on 05/24/19 0141 Oseltamivir Phosphate (Tamiflu) 75 Mg Capsule, 1 CAP PO BID for Influenza A for 5 Days, #10 Prescribed by: SHLOMO LALA MD on 05/27/19 1559 Pantoprazole Sodium (Protonix ) 40 Mg Tablet., 40 MG PO DAILYAC for GERD for 30 Days, #30 Prescribed by: SHLOMO LALA MD on 05/27/19 155 SHLOMO LALA MD May 29, 2019 15:32
== END 2019-05-27 16:44 | disposition home or self-care (01) | DRG 392 ==
LOC: ER 22:39 → 4 NORTH 05-27 01:26
PROVIDERS: ADMIT Internal Medicine; ATTEND Internal Medicine
DX: A05.9 Bacterial foodborne intoxication, unspecified (principal); K50.90 Crohn's disease, unspecified, without complications; J10.1 Influenza due to other identified influenza virus with other respiratory manifestations; K52.9 Noninfective gastroenteritis and colitis, unspecified; E87.6 Hypokalemia; F17.210 Nicotine dependence, cigarettes, uncomplicated; Z79.899 Other long term (current) drug therapy
CPT/HCPCS: 36415; 74177; 80048; 80053; 80307; 81001; 83690; 83735; 85025; 96361; 96374; 96375; G0480; J0780; J2270; J2405; J2765; J3010; J3490; J7030; Q9967; 99285-25; G0378

== ENCOUNTER 2020-04-28 16:37 | Emergency (ER) | payer OTHER ==
[~2020-04-28] VITALS: Ht 167.6 cm; Wt 60.0 kg
[~2020-04-28 16:37] MED LIST changes: +PANT40TA77 PO
[2020-04-28 16:50] VITALS: BP 137/86
--- NOTE | 2020-04-28 17:36 | RAD ---
EXAM: XR RIBS MIN 3 VIEWS LT W/PA CHEST 04/28/2020 5:23 PM CLINICAL INDICATION: Rib pain, which between freezer and wall COMPARISON: Chest radiograph 12/08/2019 TECHNIQUE: PA view the chest and AP and oblique views of the left ribs FINDINGS: The heart and mediastinum are normal. Lungs are well-expanded clear. There is no focal opa city, pleural effusion, or pneumothorax. No rib fracture. IMPRESSION: Normal chest. No left rib fracture. Electronically signed by: Tiara Courtney MD (04/28/2020 5:34 PM) [id number]
[2020-04-28] MEDS ORDERED: CYCL10TA2 PO (17:53)
[2020-04-28] MEDS ORDERED: NAPR-514 PO (17:53)
--- NOTE | 2020-04-28 17:53 | PHYS DOC ---
Past Medical History Past Medical History: No Pertinent History (TENZIN CUENCA APRN) Past Surgical History: No Surgical History (TENZIN CUENCA APRN) Smoking Status: Light Tobacco Smoker Alcohol Use: Occasionally Drug Use: Marijuana (TENZIN CUENCA APRN) General Adult EDM: Chief Complaint: RIB PAIN HPI: HPI: Patient is a 30 year old this is a 30-year-old male patient presenting to the ED today with mild left chest pain that began a week ago after he got wedged between a wall and the freezer he was moving. Patient describes the pain as sharp worse on touching his chest. Denies anything specifically relieving the pain. (TENZIN CUENCA APRN) Review of Systems: Review of Systems: Constitutional: Denies fever or chills. [] Eyes: Denies change in visual acuity. [] HENT: Denies nasal congestion or sore throat. [] Respiratory: Reports left-sided chest pain. Denies cough or shortness of breath. [] Cardiovascular: Denies chest pain or edema. [] GI: Denies abdominal pain, nausea, vomiting, bloody stools or diarrhea. [] : Denies dysuria. [] Musculoskeletal: Denies back pain or joint pain. [] Integument: Denies rash. [] Neurologic: Denies headache, focal weakness or sensory changes. Psychiatric: Denies depression or anxiety. [] (TENZIN CUENCA APRN) Heart Score: Risk Factors: Risk Factors: DM, Current or recent (<one month) smoker, HTN, HLP, family history of CAD, obesity. Risk Scores: Score 0 - 3: 2.5% MACE over next 6 weeks - Discharge Home Score 4 - 6: 20.3% MACE over next 6 weeks - Admit for Clinical Observation Score 7 - 10: 72.7% MACE over next 6 weeks - Early Invasive Strategies (TENZIN CUENCA APRN) Allergies: Allergies: Allergies Coded Allergies Type Severity Reaction Last Updated Verified No Known Drug Allergies 05/16/15 No (TENZIN CUENCA APRN) Physical Exam: PE: Constitutional: Well developed, well nourished, no acute distress, non-toxic appearance. [] HENT: Normocephalic, atraumatic, bilateral external ears normal, oropharynx moist, no oral exudates, nose normal. [] Eyes: PERRLA, EOMI, conjunctiva normal, no discharge. [] Neck: Normal range of motion, no tenderness, supple, no stridor. [] Cardiovascular:Heart rate regular rhythm, no murmur [] Lungs & Thorax: Bilateral breath sounds clear to auscultation [] Abdomen: Bowel sounds normal, soft, no tenderness, no masses, no pulsatile masses. [] Skin: Warm, dry, no erythema, no rash. [] Back: No tenderness, no CVA tenderness. [] Extremities: No tenderness, no cyanosis, no clubbing, ROM intact, no edema. [] Neurologic: Alert and oriented X 3, normal motor function, normal sensory function, no focal deficits noted. [] Psychologic: Affect normal, judgement normal, mood normal. [] (TENZIN CUENCA APRN) Current Patient Data: Vital Signs: Vital Signs Date Time Temp Pulse Resp B/P (MAP) Pulse Ox O2 Delivery O2 Flow Rate FiO2 04/28/20 16:50 98.4 97 16 137/86 (103) 100 Room Air 98.4 (TENZIN CUENCA APRN) EKG: EKG: [] (TENZIN CUENCA APRN) Radiology/Procedures: Radiology/Procedures: []PROCEDURE: RIBS LEFT AND PA CHEST EXAM: XR RIBS MIN 3 VIEWS LT W/PA CHEST 04/28/2020 5:23 PM CLINICAL INDICATION: Rib pain, which between freezer and wall COMPARISON: Chest radiograph 12/08/2019 TECHNIQUE: PA view the chest and AP and oblique views of the left ribs FINDINGS: The heart and mediastinum are normal. Lungs are well-expanded clear. There is no focal opacity, pleural effusion, or pneumothorax. No rib fracture. IMPRESSION: Normal chest. No left rib fracture. Electronically signed by: Tiara Courtney MD (04/28/2020 5:34 PM) [id number] DICTATED and SIGNED BY: TIARA COURTNEY MD DATE: 04/28/20 [id number] 0 (TENZIN CUENCA APRN) Course & Med Decision Making: Course & Med Decision Making Pertinent Labs and Imaging studies reviewed. (See chart for details) This is a 30-year-old male patient presented to the ED today with left-sided chest pain that began a week ago after he got wedged between a freezer he was moving at a wall. Left chest exam is benign. Left chest chest x-ray including PA chest interpreted by radiologist is negative for any acute findings. Discharge to home. Follow-up with PCP in 1 to 2 weeks (TENZIN CUENCA APRN) Steve Disclaimer: Steve Disclaimer: This electronic medical record was generated, in whole or in part, using a voice recognition dictation system. (TENZIN CUENCA APRN) Departure Departure Impression: Primary Impression: Contusion of left chest wall Qualified Codes: S20.212A - Contusion of left front wall of thorax, initial encounter Disposition: 01 DC HOME SELF CARE/HOMELESS Condition: STABLE Referrals: UNKNOWN PCP NAME (PCP) follow up with your doctor in 2 weeks Patient Instructions: Chest Pain (Nonspecific) Additional Instructions: You were evaluated in the emergency room for left chest contusion, your chest x- ray is negative for any acute findings. Continue to ice and elevate your chest region. Take the prescribed medications as ordered. Follow-up with your doctor in 1 to 2 weeks Scripts Naproxen (NAPROXEN) 500 Mg Tablet 1 TAB PO BID for pain, #20 TAB 0 Refills Prov: TENZIN CUENCA APRN 04/28/20 Cyclobenzaprine Hcl (CYCLOBENZAPRINE HCL) 10 Mg Tablet 1 TAB PO TID, #30 TAB Prov: TENZIN CUENCA APRN 04/28/20 Attending Signature Attending Signature I have reviewed the PA/[employer]'s note and plan of care. I was available for consultation as needed during the patient's visit in the emergency department. I agree with the clinical impression, plan, and disposition. (DINO HORNE DO) TENZIN CUENCA APRN Apr 28, 2020 17:53 DINO HORNE DO Apr 28, 2020 18:34
== END 2020-04-28 18:35 | disposition home or self-care (01) ==
LOC: ER 16:37
DX: S20.212A Contusion of left front wall of thorax, initial encounter (principal); R07.89 Other chest pain; F12.90 Cannabis use, unspecified, uncomplicated; Z87.891 Personal history of nicotine dependence; W22.8XXA Striking against or struck by other objects, initial encounter; Y93.89 Activity, other specified; Y92.89 Other specified places as the place of occurrence of the external cause; Y99.8 Other external cause status
CPT/HCPCS: 71101; 99283